=== PATIENT | female | born 1955 | race Caucasian/White ===

== ENCOUNTER 2019-02-23 10:24 | Emergency (ER) | payer BC, MEDICARE ==
--- NOTE | 2019-02-23 10:43 | EDM.PDOC ---
ED HPI GENERAL MEDICAL PROBLEM - General Chief Complaint: Abdominal Pain Stated Complaint: ABDOMINAL PAIN Time Seen by Provider: 02/23/19 10:43 - History of Present Illness INITIAL COMMENTS - FREE TEXT/NARRATIVE: 63-year-old female presents emergency room with abdominal pain. This pain started shortly before arrival. But was improving significantly about the time she got here. The pain is mostly right lower quadrant in shooting into her groin. She describes it as sometimes vaginal pain. The patient has had a kidney stone about 10 years ago and this reminds her of that. She's had some nausea no vomiting no fevers or chills. No burning or frequency with urination prior to this however she has a little bit of her urgency now. Shortly after arrival she did void and it was noted that she passed a stone at that point. She feels much better as time goes by. Right Abdomen Pain Score (Numeric/FACES): 5 - Related Data Allergies Allergy/AdvReac Type Severity Reaction Status Date / Time Sulfa (Sulfonamide Allergy Rash Verified 02/23/19 11:52 Antibiotics) Home Meds: Home Meds Meloxicam 15 mg PO DAILY 04/16/14 [History] Methotrexate Sodium [Methotrexate] 3 tab PO ASDIRECTED 04/16/14 [History] Apremilast [Otezla] 30 mg PO BID 02/23/19 [History] Cholecalciferol (Vitamin D3) [Vitamin D3] 2,000 intnl unit PO DAILY 02/23/19 [ History] Levothyroxine 112 mcg PO DAILY 02/23/19 [History] Magnesium Oxide [Magnesium] 400 mg PO DAILY 02/23/19 [History] Metoprolol Succinate [Toprol Xl] 100 mg PO DAILY 02/23/19 [History] Ranitidine [Zantac] 150 mg PO BID 02/23/19 [History] Ubidecarenone [Coq-10] 200 mg PO DAILY 02/23/19 [History] ED ROS GENERAL - Review of Systems Review Of Systems: See Below Constitutional: Reports: No Symptoms HEENT: Reports: No Symptoms Respiratory: Reports: No Symptoms Cardiovascular: Reports: No Symptoms GI/Abdominal: Reports: Abdominal Pain, Nausea. Denies: Constipation, Diarrhea, Vomiting : Reports: Frequency. Denies: Flank Pain, Hematuria, Urgency Musculoskeletal: Reports: No Symptoms Skin: Reports: No Symptoms ED EXAM, GI/ABD - Physical Exam Exam: See Below Exam Limited By: No Limitations General Appearance: Alert, No Apparent Distress Respiratory/Chest: No Respiratory Distress, Lungs Clear Cardiovascular: Regular Rate, Rhythm, No Edema, No Murmur GI/Abdominal Exam: Normal Bowel Sounds, Soft, Other (She has an tenderness the right lower quadrant slightly irritated with palpation no rigidity rebound or guarding noted) Back Exam: Normal Inspection. No: CVA Tenderness (L), CVA Tenderness (R) Extremities: Normal Inspection, Non-Tender, No Pedal Edema Neurological: Alert, Oriented, Normal Cognition Course - Vital Signs Last Recorded V/S: Last Vital Signs Temp 36.8 C 02/23/19 10:25 Pulse 72 02/23/19 10:25 Resp 16 02/23/19 10:25 BP 122/83 02/23/19 10:25 Pulse Ox 98 02/23/19 10:25 - Orders/Labs/Meds Labs: Laboratory Tests 02/23/19 Range/Units 10:35 Urine Color Yellow (Yellow) Urine Appearance Clear (Clear) Urine pH 7.5 (5.0-8.0) Ur Specific Marshall 1.020 (1.005-1.030) Urine Protein Negative (Negative) Urine Glucose (UA) Negative (Negative) Urine Ketones Negative (Negative) Urine Occult Blood 3+ H (Negative) Urine Nitrite Negative (Negative) Urine Bilirubin Negative (Negative) Urine Urobilinogen 0.2 (0.2-1.0) Ur Leukocyte Esterase Negative (Negative) Urine RBC 30-40 H (0-5) /hpf Urine WBC 0-5 (0-5) /hpf Ur Epithelial Cells 0-5 (0-5) /hpf Urine Bacteria Few (FEW) /hpf Urine Mucus Moderate H (FEW) /hpf - Re-Assessments/Exams Free Text/Narrative Re-Assessment/Exam: 02/23/19 12:23 Urinalysis shows microscopic hematuria no evidence of infection. As time went by her pain is basically resolved and she is back to baseline. Departure - Departure Time of Disposition: 12:23 Disposition: Home, Self-Care 01 Clinical Impression: Kidney stone on right side - Discharge Information Referrals: Kourtney Leiav MANAGER OF [employer]GRAM [Primary Care Provider] - Forms: ED Department Discharge Additional Instructions: It appears that your pain was probably related to a kidney stone that you just past. For the remainder of today clear liquid diet resume normal diet tomorrow. Return to the emergency room with any questions problems or worsening symptoms. The stone will be sent out for further analysis. Follow-up with your regular provider the middle to end of next week.
== END 2019-02-23 12:30 | disposition home or self-care (01) ==
LOC: JD.ED 10:24
DX: N20.0 Calculus of kidney (principal); Z88.2 Allergy status to sulfonamides; Z79.899 Other long term (current) drug therapy
CPT/HCPCS: 81001; 82360; 99284